=== PATIENT | female | born 1970 | race Caucasian/White ===

== ENCOUNTER → 2018-05-26 | Outpatient (CLI) | payer OTHER ==
[~2018-05-26] MED LIST: DOXYCYCLINE 10100 MG PO; PROAIR HFA8.5 GM IH; SUDAFED PO; TESSALON200 MG PO
== END ==
LOC: CAT 05-12 15:19 → EDSTATUS 05-12 15:31 → CAT 01:22
DX: M43.22 Fusion of spine, cervical region (principal)

== ENCOUNTER → 2018-06-20 | Outpatient (CLI) | payer OTHER | LOC: CAT 10:01 | DX: M19.012 Primary osteoarthritis, left shoulder (principal); M25.712 Osteophyte, left shoulder; M25.812 Other specified joint disorders, left shoulder ==

== ENCOUNTER 2020-02-20 09:58 | Emergency (ER) | payer OTHER ==
[~2020-02-20] VITALS: Ht 167.6 cm; Wt 84.4 kg
[2020-02-20 10:31] LABS: HEMATOCRIT 45.1 % (37.0-47.0); HEMOGLOBIN 15.1 gm/dL (12.0-15.0); MCH 29.8 pg (26.0-34.0); MCHC 33.4 g/dL (28.0-37.0); MCV 89.1 fL (80.0-100.0); RBC 5.06 mil/uL (4.20-5.00); RDW 13.7 % (10.5-14.5); WBC 8.9 thou/uL (4.0-11.0)
[2020-02-20 11:01] LABS: ABSOLUTE NEUTROPHILS 4.9 thou/uL (1.4-8.2)
[2020-02-20 11:03] LABS: PLATELET ESTIMATE NORMAL
[2020-02-20 11:04] LABS: PLATELET COUNT 258 thou/uL (150-400)
[2020-02-20] MEDS ORDERED: NORCO 10-325 T1 EACH PO (11:51)
[2020-02-20] MEDS ORDERED: XARELTO20 MG PO (11:52)
[2020-02-20] MEDS ORDERED: NORVASC 2.5 MG2.5 M1 PO (11:52)
[2020-02-20] MEDS ORDERED: BENZTROPINE ME0.5 MG PO (11:52)
[2020-02-20 12:16] LABS: ANION GAP 10 mmol/L (7-16); BUN 8 mg/dL (7-18); CALCIUM 8.8 mg/dL (8.5-10.1); CHLORIDE 105 mmol/L (98-107); CO2 26 mmol/L (21-32); CREATININE 0.7 mg/dL (0.6-1.0); GLUCOSE 85 mg/dL (74-106); POTASSIUM 3.9 mmol/L (3.5-5.1); SODIUM 141 mmol/L (136-145)
[2020-02-20 12:24] LABS: INR 1.1; PROTIME 10.8 Seconds (9.3-11.4)
[2020-02-20 12:26] LABS: ALBUMIN 3.2 g/dL (3.4-5.0); SGOT 17 U/L (15-37); SGPT 22 U/L (30-65); TOTAL BILIRUBIN 0.2 mg/dL (0.2-1.0); TROPONIN-I <0.06 ng/mL (<0.06)
[2020-02-20] MEDS ORDERED: ULTRA-LIGHT RO1 EACH (13:06)
[2020-02-20] MEDS ORDERED: MECLIZINE HCL25 M1 PO (13:06)
[2020-02-20 13:18] VITALS: BP 138/79
--- NOTE | 2020-02-22 08:11 | EKG ---
[facility] [place] [address] ELECTROCARDIOGRAM REPORT Name: SAMARIA KHAN Room #: DEP [facility].#: [id number] Admission: 02/20/20 Attend Phys: Discharge: 02/20/20 Date of : 66 Report #: [id number] THIS REPORT FOR: cc: Rene Deshpande MD, Mauricio MD Santiago, Patrick MD [facility] ~ THIS REPORT FOR: //name// [facility] ED Test Date: 2020-02-20 Test Time: 10:22:06 Pat Name: SAMARIA KHAN Department: Room: Gender: F Suspender Maker: [facility] : 1970 Requested By: Anil Napoles Order Number: [id number] MD: Rodney Manriquez Measurements Intervals Velva Rate: 86 P: 44 MS: 195 QRS: -16 QRSD: 96 T: 45 QT: 385 QTc: 461 Interpretive Statements Sinus rhythm Ventricular premature complex Borderline left axis deviation Borderline T wave abnormalities No previous ECG available for comparison Electronically Signed On 02-22-2020 8:11:20 CDT by Rodney Manriquez [email or web address] <ELECTRONICALLY SIGNED> By: Rodney Manriquez MD, FAC [id number] 21 21 Rodney Manriquez MD, [facility] /EPI
== END 2020-02-20 13:20 | disposition home or self-care (01) ==
LOC: ER 09:58
PROVIDERS: Emergency Medicine
DX: R42 Dizziness and giddiness (principal); F17.210 Nicotine dependence, cigarettes, uncomplicated; Z90.89 Acquired absence of other organs; Z79.899 Other long term (current) drug therapy; Z88.1 Allergy status to other antibiotic agents

== ENCOUNTER → 2020-06-21 | Outpatient (CLI) | payer OTHER ==
[~2020-06-21] MED LIST changes: +BENZTROPINE ME0.5 MG PO; +MECLIZINE HCL25 M1 PO; +NORCO 10-325 T1 EACH PO; +NORVASC 2.5 MG2.5 M1 PO; +ULTRA-LIGHT RO1 EACH; +XARELTO20 MG PO
== END ==
LOC: CAT 09:54
PROVIDERS: ATTEND Anesthesiology
DX: M50.30 Other cervical disc degeneration, unspecified cervical region (principal); M25.569 Pain in unspecified knee; Z98.890 Other specified postprocedural states